=== PATIENT | male | born 1960 | race Caucasian/White ===

== ENCOUNTER 2016-08-29 14:16 | Inpatient (IN) | payer OTHER ==
[~2016-08-29] VITALS: Ht 185.4 cm; Wt 150.0 kg
[2016-08-29] MEDS ORDERED: NITROGLYCERIN SINGLE TAB 0.4 MG SL PRN (15:30)
[2016-08-29] MEDS ORDERED: SODIUM CHLORIDE FLUSH 10ML SYR IVF ONE (15:30)
[2016-08-29] MEDS ORDERED: FUROSEMIDE 40 MG/4 ML IVPush ONE (15:30)
[2016-08-29] MEDS ORDERED: ASPIRIN 81 MG TABLET CHEW PO ONE (15:30)
[2016-08-29] MEDS ORDERED: PLEASE ENTER ALLERGIES MC SCH ×2 (16:00)
[2016-08-29 16:19] LABS: HEMOGLOBIN 15.9 g/dL (13.7-18.0)
[2016-08-29] MEDS ORDERED: FUROSEMIDE 20 MG/2 ML ONE (16:26)
[2016-08-29] MEDS ORDERED: ASPIRIN 81 MG TABLET CHEW ONE (16:26)
[2016-08-29 16:29] LABS: ASPARTATE AMINO TRANSFERASE 29 U/L (15-37); BLOOD UREA NITROGEN 17 mg/dL (7-18)
[2016-08-29 16:35] LABS: IS PT STATUS REG ER OR PRE ER? YES
[2016-08-29] MEDS ORDERED: NITROGLYCERIN SINGLE TAB 0.4 MG SL ONE (16:43)
[2016-08-29] MEDS ORDERED: ATOR80TA75 PO (17:01)
[2016-08-29] MEDS ORDERED: SIMV20TA3 PO (17:01)
[2016-08-29] MEDS ORDERED: VALS1TAB22 PO (17:01)
[2016-08-29] MEDS ORDERED: FENO145T32 PO (17:01)
[2016-08-29] MEDS ORDERED: ASPI-496 PO (17:01)
[2016-08-29] MEDS ORDERED: METO25TA35 PO (17:01)
[2016-08-29] MEDS ORDERED: RANI150T4 PO (17:01)
[2016-08-29] MEDS ORDERED: INSU100V8 SQ (17:02)
[2016-08-29] MEDS ORDERED: INSU100C5 SQ-INSULIN (17:02)
[2016-08-29] MEDS ORDERED: OMNIPAQUE 350 MG/ML, 150 ML BOTTLE ONE (18:54)
[2016-08-29] MEDS ORDERED: HEPARIN 25,000 UNITS/500ML PMX 500 ML IV PRN ×2 (19:00→20:30)
[2016-08-29] MEDS ORDERED: HEPARIN 5,000 UNITS/ML, 1ML IV ONE ×2 (19:00→20:30)
[2016-08-29] MEDS ORDERED: HEPARIN 5,000 UNITS/ML, 1ML IV PRN ×2 (19:00→20:30)
[2016-08-29] MEDS ORDERED: BISACODYL 10 MG SUPP PR PRN (20:30)
[2016-08-29] MEDS ORDERED: POLYETHYLENE GLYCOL 17 GM PACKET PO PRN (20:30)
[2016-08-29] MEDS ORDERED: MORPHINE SULFATE 4 MG/ML, 1ML IVPush PRN (20:30)
[2016-08-29] MEDS ORDERED: ACETAMINOPHEN 325 MG TABLET PO PRN (20:30)
[2016-08-29] MEDS ORDERED: ONDANSETRON 2MG/ML, 2ML IVP PRN (20:30)
[2016-08-29] MEDS ORDERED: TEMPLATE NON-FORMULARY MED. (Insulin Aspart** (Novolog**) 0 UNITS) SQ-INSULIN SCH (21:00)
[2016-08-29 21:13] LABS: IS PT STATUS REG ER OR PRE ER? NO
[2016-08-29 22:43] VITALS: BP 139/66
[2016-08-30] MEDS: METOPROLOL TARTRATE 25 MG TABLET PO SCH ×3 (00:32→21:31)
[2016-08-30] MEDS: SIMVASTATIN 20 MG TABLET PO SCH ×2 (00:32→21:31)
[2016-08-30] MEDS: FAMOTIDINE 20 MG TABLET PO SCH ×2 (00:32→21:31)
[2016-08-30] MEDS: SODIUM CHLORIDE FLUSH 10ML SYR IVF SCH ×3 (00:33→21:32)
[2016-08-30 02:32] VITALS: BP 105/71
[2016-08-30 06:24] LABS: HEMOGLOBIN 15.2 g/dL (13.7-18.0)
[2016-08-30 06:45] LABS: ASPARTATE AMINO TRANSFERASE 33 U/L (15-37); BLOOD UREA NITROGEN 20 mg/dL (7-18)
[2016-08-30 06:57] LABS: IS PT STATUS REG ER OR PRE ER? NO
[2016-08-30] MEDS ORDERED: INSULIN ASPART 100 UNITS/ML, 3ML PEN HIGH DOSE SS SQ-INSULIN SCH (07:00)
[2016-08-30 07:24] VITALS: BP 119/82
[2016-08-30] MEDS ORDERED: VALSARTAN 80 MG TABLET PO SCH ×2 (09:00→09:32)
[2016-08-30] MEDS: INSULIN ASPART 100 UNITS/ML, PEN SQ-INSULIN SCH ×4 (09:20→22:48)
[2016-08-30] MEDS: FENOFIBRATE 145 MG TABLET PO SCH (09:22)
[2016-08-30] MEDS: ASPIRIN 81 MG TABLET EC PO SCH (09:23)
[2016-08-30] MEDS: HYDROCHLOROTHIAZIDE 12.5 MG CAPSULE PO SCH (09:23)
[2016-08-30] MEDS: ATORVASTATIN 80 MG TABLET PO SCH (09:23)
[2016-08-30] MEDS: SENNA/DOCUSATE TABLET PO SCH (09:23)
[2016-08-30] MEDS: VALSARTAN 80 MG TABLET PO SCH (10:10)
[2016-08-30] MEDS: RIVAROXABAN 15 MG TABLET PO SCH ×2 (11:52→17:45)
[2016-08-30 12:54] VITALS: BP 101/74
[2016-08-30 19:56] VITALS: BP 125/80
[2016-08-30] MEDS ORDERED: INSULIN DETEMIR 100 UNITS/ML, PEN SQ-INSULIN SCH (21:00)
[2016-08-31 02:19] VITALS: BP 123/75
[2016-08-31 06:34] LABS: BLOOD UREA NITROGEN 19 mg/dL (7-18)
[2016-08-31] MEDS: INSULIN ASPART 100 UNITS/ML, PEN SQ-INSULIN SCH ×3 (07:00→16:21)
[2016-08-31 08:00] VITALS: BP 114/69
[2016-08-31] MEDS: SENNA/DOCUSATE TABLET PO SCH (09:00)
[2016-08-31] MEDS: METOPROLOL TARTRATE 25 MG TABLET PO SCH (09:19)
[2016-08-31] MEDS: FENOFIBRATE 145 MG TABLET PO SCH (09:19)
[2016-08-31] MEDS: ASPIRIN 81 MG TABLET EC PO SCH (09:19)
[2016-08-31] MEDS: ATORVASTATIN 80 MG TABLET PO SCH (09:19)
[2016-08-31] MEDS: SODIUM CHLORIDE FLUSH 10ML SYR IVF SCH (09:20)
[2016-08-31] MEDS: RIVAROXABAN 15 MG TABLET PO SCH ×2 (09:20→16:21)
[2016-08-31] MEDS: VALSARTAN 80 MG TABLET PO SCH (09:20)
[2016-08-31] MEDS: HYDROCHLOROTHIAZIDE 12.5 MG CAPSULE PO SCH (09:21)
[2016-08-31] MEDS ORDERED: RIVA15TA PO (11:11)
[2016-08-31 15:11] VITALS: BP 123/82
[2016-09-03 10:07] LABS: APTT 24.8 sec (.); DRVVT RATIO 1.1 ratio (.)
== END 2016-08-31 18:28 | disposition home or self-care (01) | DRG 175 ==
LOC: ED 18:19 → EDIP 19:16 → 5SO 20:50
PROVIDERS: ADMIT Internal Medicine; ATTEND Internal Medicine
DX: I26.99 Other pulmonary embolism without acute cor pulmonale (principal); J96.00 Acute respiratory failure, unspecified whether with hypoxia or hypercapnia; E44.1 Mild protein-calorie malnutrition; D68.69 Other thrombophilia; Z68.41 Body mass index [BMI] 40.0-44.9, adult; J98.11 Atelectasis; E11.65 Type 2 diabetes mellitus with hyperglycemia; E66.01 Morbid (severe) obesity due to excess calories; I25.10 Atherosclerotic heart disease of native coronary artery without angina pectoris; E78.5 Hyperlipidemia, unspecified; N18.2 Chronic kidney disease, stage 2 (mild); I77.819 Aortic ectasia, unspecified site; I25.2 Old myocardial infarction; Z79.4 Long term (current) use of insulin; Z95.5 Presence of coronary angioplasty implant and graft; Z79.82 Long term (current) use of aspirin; I13.10 Hypertensive heart and chronic kidney disease without heart failure, with stage 1 through stage 4 chronic kidney disease, or unspecified chronic kidney disease
CPT/HCPCS: 36415; 71010; 71275; 80048; 80053; 81241; 82962; 83036; 83735; 83880; 84484; 85025; 85303; 85306; 85379; 85520; 85598; 85610; 85613; 85670; 85730; 85732; 86146; 86147; 93005; 93970; 96374; C8929; J1644; J1815; J1940; Q9967

== ENCOUNTER → 2019-10-24 | Outpatient (CLI) | payer OTHER ==
[~2019-10-24] MED LIST: ASPI-496 PO; ATOR-2 PO; FENO145T32 PO; INSU100C5 SQ-INSULIN; INSU100V8 SQ; LOSA100T14 PO; METO25TA35 PO; OMEG10007 PO; RANI150T4 PO; REGADENOSON 0.4 MG/5 ML SYRINGE ONE; RIVA15TA PO; RIVA20TA PO; SIMV20TA19 PO; VALS1TAB22 PO
== END | disposition home or self-care (01) ==
LOC: CFH 08:02
PROVIDERS: ATTEND Internal Medicine Cardiovascular Disease
DX: I25.89 Other forms of chronic ischemic heart disease (principal); I10 Essential (primary) hypertension; Z82.49 Family history of ischemic heart disease and other diseases of the circulatory system; Z95.5 Presence of coronary angioplasty implant and graft
CPT/HCPCS: 78452; 93017; A9502; J2785

== ENCOUNTER → 2019-11-15 | Outpatient (CLI) | payer OTHER ==
[~2019-11-15] MED LIST changes: -REGADENOSON 0.4 MG/5 ML SYRINGE ONE
== END | disposition home or self-care (01) ==
LOC: CVU 07:20
PROVIDERS: ATTEND Internal Medicine Cardiovascular Disease
DX: I08.0 Rheumatic disorders of both mitral and aortic valves (principal); I10 Essential (primary) hypertension; E11.9 Type 2 diabetes mellitus without complications; E78.5 Hyperlipidemia, unspecified; Z95.5 Presence of coronary angioplasty implant and graft; Z82.49 Family history of ischemic heart disease and other diseases of the circulatory system
CPT/HCPCS: 93306

== ENCOUNTER 2020-01-11 09:30 | Day surgery (SDC) | payer OTHER ==
[~2020-01-11] VITALS: Ht 185.4 cm; Wt 156.8 kg
[2020-01-11] MEDS ORDERED: CIME200T6 PO (10:05)
[2020-01-11] MEDS ORDERED: HYDROCHLOROTH12.5 MG PO (10:06)
[2020-01-11 10:47] VITALS: BP 143/71
[2020-01-11 12:05] LABS: ANION GAP 7 mmol/L (5-15); CALCIUM 8.9 mg/dL (8.5-10.1); CHLORIDE 110 mmol/L (98-107); CREATININE 1.45 mg/dL (0.7-1.3)
[2020-01-11 12:17] LABS: BASOPHILS # (AUTO) 0.04 x10^3/uL (0-0.1); BASOPHILS % (AUTO) 1 % (0-1); EOSINOPHILS # (AUTO) 0.19 x10^3/uL (0-0.4); EOSINOPHILS % (AUTO) 3 % (1-7); LYMPHOCYTES % (AUTO) 30 % (22-44); MD NO; MEAN CORPUSCULAR HEMOGLOBIN 27.8 pg (27.5-34.5); MEAN CORPUSCULAR HGB CONC 33.3 g/dL (33.2-36.2); MEAN CORPUSCULAR VOLUME 83.4 fL (81-97); MONOCYTES # (AUTO) 0.37 x10^3/uL (0.2-0.8); MONOCYTES % (AUTO) 6 % (2-9); NEUTROPHILS # (AUTO) 3.98 x10^3/uL (1.8-6.8); NEUTROPHILS % (AUTO) 61 % (42-75); PLATELET COUNT 260 x10^3/uL (130-400); RED BLOOD COUNT 4.77 x10^6/uL (4.38-5.82); RED CELL DISTRIBUTION WIDTH 14.9 % (9.4-14.8)
[2020-01-11] MEDS ORDERED: MIDAZOLAM 1 MG/ML, 5ML ONE (12:56)
[2020-01-11] MEDS ORDERED: FENTANYL PF 100 MCG/2ML ONE (12:56)
[2020-01-11] MEDS ORDERED: BIVALIRUDIN 250 MG ONE (12:57)
[2020-01-11] MEDS ORDERED: LIDOCAINE-MPF 1%, 5ML ONE (12:57)
[2020-01-11] MEDS ORDERED: HEPARIN 1,000 UNITS/ML, 10ML ONE (12:57)
[2020-01-11] MEDS ORDERED: TICAGRELOR 90 MG TABLET ONE (12:57)
[2020-01-11] MEDS ORDERED: VERAPAMIL 2.5 MG/ML, 2ML ONE (12:57)
== END 2020-01-11 16:09 | disposition home or self-care (01) ==
LOC: CACL 09:30
PROVIDERS: ATTEND Internal Medicine Cardiovascular Disease
DX: I25.10 Atherosclerotic heart disease of native coronary artery without angina pectoris (principal); I25.2 Old myocardial infarction; E11.9 Type 2 diabetes mellitus without complications; E78.2 Mixed hyperlipidemia; I10 Essential (primary) hypertension; Z79.4 Long term (current) use of insulin; Z79.01 Long term (current) use of anticoagulants; Z86.711 Personal history of pulmonary embolism; Z79.82 Long term (current) use of aspirin; Z79.899 Other long term (current) drug therapy; Z95.5 Presence of coronary angioplasty implant and graft; Z82.49 Family history of ischemic heart disease and other diseases of the circulatory system
CPT/HCPCS: 36415; 80048; 85025; 93458; 93571; 99156; 99157; C1769; C1894; J1644; J2250; J3010; Q9967; J0583

== ENCOUNTER 2020-05-17 05:11 | Inpatient (IN) | payer OTHER ==
[~2020-05-17] VITALS: Ht 185.4 cm; Wt 143.0 kg
[~2020-05-17 05:11] MED LIST changes: +CIME200T6 PO; +HYDROCHLOROTH12.5 MG PO
[2020-05-17] MEDS ORDERED: CEFTRIAXONE PMX 1GM/50ML 50 ML IV ONE (06:00)
[2020-05-17] MEDS ORDERED: AZITHROMYCIN 500 MG in SODIUM CHLORIDE 0.9% 250 ML IV ONE (06:00)
--- NOTE | 2020-05-17 06:09 | NUR ---
pt with recent covid 19 diagnosis. pt states he bought an o2 monitor for home and this morning he woke with difficulty breathing. his O2 monitor said low 80s and so pt decided to come in. pt with very frequent dry cough and low O2 in the 80 in traige. 2 L NC O2 applied to maintain O2 >90%
[2020-05-17 06:28] LABS: BASOPHILS % (AUTO) 1 % (0-1); EOSINOPHILS % (AUTO) 0 % (1-7); LYMPHOCYTES % (AUTO) 20 % (22-44); MEAN CORPUSCULAR HEMOGLOBIN 28.5 pg (27.5-34.5); MEAN CORPUSCULAR HGB CONC 35.1 g/dL (33.2-36.2); MEAN PLATELET VOLUME 8.1 fL (7.4-10.4); MONOCYTES % (AUTO) 9 % (2-9); NEUTROPHILS % (AUTO) 71 % (42-75); PLATELET COUNT 161 x10^3/uL (130-400); RED BLOOD COUNT 4.85 x10^6/uL (4.38-5.82); RED CELL DISTRIBUTION WIDTH 14.8 % (9.4-14.8)
[2020-05-17] MEDS ORDERED: DEXAMETHASONE 4 MG/ML, 1ML IVPush ONE ×2 (06:30→09:00)
[2020-05-17 06:34] LABS: ALANINE AMINOTRANSFERASE 69 U/L (12-78); ALBUMIN 2.8 g/dL (3.4-5.0); ANION GAP 8 mmol/L (5-15); CALCIUM 8.6 mg/dL (8.5-10.1); CHLORIDE 102 mmol/L (98-107); CREATININE 1.63 mg/dL (0.7-1.3)
[2020-05-17 06:35] LABS: MD NO
[2020-05-17 06:37] LABS: PLATELET (DIC) 161 x10^3/uL (130-400)
[2020-05-17 06:41] LABS: ALKALINE PHOSPHATASE 39 U/L (45-117); BILIRUBIN,TOTAL 0.7 mg/dL (0.2-1.0); TOTAL PROTEIN 6.9 g/dL (6.4-8.2)
[2020-05-17] MEDS ORDERED: DEXAMETHASONE 4 MG/ML, 1ML ONE (06:43)
[2020-05-17] MEDS ORDERED: CEFTRIAXONE PMX 1GM/50ML 50 ML ONE (06:44)
[2020-05-17 07:00] LABS: FIBRINOGEN 326 mg/dL (200-340); PROTIME 11.4 Seconds (9.6-11.5); PTT 31 Seconds (25-31)
[2020-05-17 07:01] LABS: D-DIMER (DIC) < 0.19 ug/mlFEU (0.00-0.52)
--- NOTE | 2020-05-17 07:14 | NUR ---
TOOK REPORT FROM CHRISTOPH TALAVERA, ASSUME CARE AT THIS TIME. PT SITTING IN BED REPORTS SOB SPO2 [id number] ON 4L NC. CALLED FOR A HOSPITAL BED.
--- NOTE | 2020-05-17 07:36 | NUR ---
PT PRONED WITH PILLOWS PER REQUEST. "THIS IS THE ONLY WAY I CAN SLEEP" PT ON A HOSPITAL BED. WENT OVER PLAN OF FROM ORDER LIST, AGREES TO PLAN.
--- NOTE | 2020-05-17 08:01 | NUR ---
GROUP SUPERVISOR YARD, ELEANOR IN ROOM FOR PT EVAL/ ADMIT
[2020-05-17] MEDS ORDERED: DOXYCYCLINE 100 MG in DEXTROSE 5% 250 ML IV SCH (08:30)
[2020-05-17] MEDS ORDERED: GUAIFENESIN/DM 200-20MG, 10ML UDC PO PRN (08:30)
[2020-05-17] MEDS ORDERED: hydrALAzine 20 MG/ML, 1ML IVPush PRN (08:30)
[2020-05-17] MEDS ORDERED: DIPHENHYDRAMINE 25 MG CAPSULE PO PRN (08:30)
[2020-05-17] MEDS ORDERED: BISACODYL 10 MG SUPP PR PRN (08:30)
[2020-05-17] MEDS ORDERED: HYDROcodone/APAP 5/325 TABLET PO PRN (08:30)
[2020-05-17] MEDS ORDERED: MELATONIN 5 MG TABLET PO PRN (08:30)
[2020-05-17] MEDS ORDERED: ONDANSETRON 2MG/ML, 2ML IVPush PRN (08:30)
[2020-05-17] MEDS ORDERED: PROMETHAZINE 25 MG/ML, 1ML IM PRN (08:30)
[2020-05-17] MEDS ORDERED: POLYETHYLENE GLYCOL 17 GM PACKET PO PRN (08:30)
[2020-05-17] MEDS ORDERED: LABETALOL 5MG/ML, 20ML IVPush PRN (08:30)
[2020-05-17] MEDS ORDERED: REMDESIVIR 200 MG in SODIUM CHLORIDE 0.9% 250 ML IVPB ONE (09:00)
[2020-05-17] MEDS: SENNA/DOCUSATE TABLET PO SCH (09:00)
[2020-05-17] MEDS ORDERED: BUDESONIDE 0.5 MG/2 ML INHA INH SCH (09:30)
[2020-05-17 10:09] LABS: TROPONIN I 0.033 ng/mL (0.000-0.045)
[2020-05-17 10:21] VITALS: BP 148/80
[2020-05-17] MEDS: ZINC SULFATE 220 MG CAPSULE PO SCH (11:16)
[2020-05-17] MEDS: ASCORBIC ACID 500 MG TABLET PO SCH ×3 (11:17→21:38)
[2020-05-17] MEDS: METOPROLOL TARTRATE 25 MG TAB PO SCH ×2 (11:17→21:38)
[2020-05-17] MEDS: LOSARTAN 50MG TABLET PO SCH (11:17)
[2020-05-17] MEDS: RIVAROXABAN 20 MG TABLET PO SCH (11:17)
[2020-05-17] MEDS: THIAMINE 100MG TABLET PO SCH ×2 (11:18→21:38)
[2020-05-17] MEDS: ATORVASTATIN 80 MG TABLET PO SCH (11:18)
[2020-05-17] MEDS: CHOLECALCIFEROL 5,000u TAB PO SCH (11:18)
[2020-05-17] MEDS: ASPIRIN 81 MG TABLET EC PO SCH (11:18)
[2020-05-17 12:41] VITALS: BP 132/78
[2020-05-17] MEDS: GUAIFENESIN/DM 200-20MG, 10ML UDC PO SCH ×3 (13:21→23:09)
[2020-05-17] MEDS: FENOFIBRATE 145 MG TABLET PO SCH (13:22)
[2020-05-17] MEDS: HYDROCHLOROTHIAZIDE 12.5 MG CAPSULE PO SCH (13:22)
[2020-05-17] MEDS: INSULIN LISPRO 100 UNITS/ML, PEN SQ-INSULIN SCH ×3 (13:23→21:39)
[2020-05-17] MEDS: LACTATED RINGERS 1,000 ML IV SCH (15:23)
[2020-05-17 16:03] LABS: TROPONIN I 0.031 ng/mL (0.000-0.045)
[2020-05-17] MEDS: CEFTRIAXONE PMX 2GM/50ML 50 ML IVPB SCH (16:05)
[2020-05-17] MEDS: DOXYCYCLINE 100 MG in DEXTROSE 5% 250 ML IV SCH ×2 (17:15→21:44)
[2020-05-17] MEDS: CIMETIDINE 200 MG TABLET PO SCH (17:15)
[2020-05-17] MEDS ORDERED: INSULIN GLARGINE 100 UNITS/ML, PEN SQ-INSULIN SCH (21:00)
[2020-05-17 21:10] VITALS: BP 146/81
[2020-05-17] MEDS: MELATONIN 5 MG TABLET PO SCH (21:38)
[2020-05-17 22:50] LABS: TROPONIN I 0.018 ng/mL (0.000-0.045)
[2020-05-18 00:52] VITALS: BP 107/66
[2020-05-18] MEDS: LACTATED RINGERS 1,000 ML IV SCH ×2 (04:00→23:08)
[2020-05-18] MEDS: GUAIFENESIN/DM 200-20MG, 10ML UDC PO SCH ×4 (06:00→23:16)
[2020-05-18 08:00] LABS: BASOPHILS % (AUTO) 1 % (0-1); EOSINOPHILS % (AUTO) 0 % (1-7); LYMPHOCYTES % (AUTO) 17 % (22-44); MEAN CORPUSCULAR HEMOGLOBIN 28.2 pg (27.5-34.5); MEAN CORPUSCULAR HGB CONC 34.5 g/dL (33.2-36.2); MEAN PLATELET VOLUME 8.1 fL (7.4-10.4); MONOCYTES % (AUTO) 10 % (2-9); NEUTROPHILS % (AUTO) 72 % (42-75); PLATELET COUNT 167 x10^3/uL (130-400); RED BLOOD COUNT 4.65 x10^6/uL (4.38-5.82); RED CELL DISTRIBUTION WIDTH 14.9 % (9.4-14.8)
[2020-05-18 08:10] LABS: ANION GAP 6 mmol/L (5-15); CALCIUM 8.5 mg/dL (8.5-10.1); CHLORIDE 104 mmol/L (98-107)
[2020-05-18 08:21] LABS: CREATININE 1.53 mg/dL (0.7-1.3)
[2020-05-18 08:49] VITALS: BP 130/73
[2020-05-18] MEDS: REMDESIVIR 100 MG in SODIUM CHLORIDE 0.9% 250 ML IVPB SCH (08:59)
[2020-05-18] MEDS: FLUTICASONE/VILANTEROL 100-25MCG/INH INH SCH (08:59)
[2020-05-18] MEDS: INSULIN LISPRO 100 UNITS/ML, PEN SQ-INSULIN SCH ×3 (08:59→21:30)
[2020-05-18] MEDS: THIAMINE 100MG TABLET PO SCH ×2 (09:00→21:28)
[2020-05-18] MEDS: HYDROCHLOROTHIAZIDE 12.5 MG CAPSULE PO SCH (09:00)
[2020-05-18] MEDS: ATORVASTATIN 80 MG TABLET PO SCH (09:00)
[2020-05-18] MEDS: ASPIRIN 81 MG TABLET EC PO SCH (09:01)
[2020-05-18] MEDS: LOSARTAN 50MG TABLET PO SCH (09:01)
[2020-05-18] MEDS: ZINC SULFATE 220 MG CAPSULE PO SCH (09:01)
[2020-05-18] MEDS: FENOFIBRATE 145 MG TABLET PO SCH (09:01)
[2020-05-18] MEDS: METOPROLOL TARTRATE 25 MG TAB PO SCH ×2 (09:01→21:29)
[2020-05-18] MEDS: CHOLECALCIFEROL 5,000u TAB PO SCH (09:01)
[2020-05-18] MEDS: RIVAROXABAN 20 MG TABLET PO SCH (09:01)
[2020-05-18] MEDS: ASCORBIC ACID 500 MG TABLET PO SCH ×3 (09:01→21:28)
[2020-05-18] MEDS: CIMETIDINE 200 MG TABLET PO SCH (09:01)
[2020-05-18] MEDS: SENNA/DOCUSATE TABLET PO SCH (09:02)
[2020-05-18 09:15] LABS: MD SCAN
[2020-05-18] MEDS ORDERED: FUROSEMIDE 40 MG/4 ML IV ONE (09:30)
[2020-05-18] MEDS: DOXYCYCLINE 100 MG in DEXTROSE 5% 250 ML IV SCH (11:18)
[2020-05-18] MEDS: ACETAMINOPHEN 325 MG TABLET PO PRN (11:39)
[2020-05-18 12:10] VITALS: BP 125/74
[2020-05-18] MEDS: INSULIN GLARGINE 100 UNITS/ML, PEN SQ-INSULIN SCH ×2 (12:52→21:30)
[2020-05-18] MEDS: CEFTRIAXONE PMX 2GM/50ML 50 ML IVPB SCH (16:45)
[2020-05-18 20:12] VITALS: BP 151/84
[2020-05-18] MEDS: DOXYCYCLINE 100MG TABLET PO SCH (21:28)
[2020-05-18] MEDS: MELATONIN 5 MG TABLET PO SCH (21:29)
[2020-05-19 01:58] VITALS: BP 151/84
[2020-05-19] MEDS: GUAIFENESIN/DM 200-20MG, 10ML UDC PO SCH ×3 (05:21→17:14)
[2020-05-19] MEDS: ACETAMINOPHEN 325 MG TABLET PO PRN ×2 (05:36→09:32)
[2020-05-19 06:16] LABS: BASOPHILS % (AUTO) 0 % (0-1); EOSINOPHILS % (AUTO) 0 % (1-7); LYMPHOCYTES % (AUTO) 10 % (22-44); MEAN CORPUSCULAR HEMOGLOBIN 28.5 pg (27.5-34.5); MEAN CORPUSCULAR HGB CONC 35.1 g/dL (33.2-36.2); MEAN PLATELET VOLUME 8.3 fL (7.4-10.4); MONOCYTES % (AUTO) 8 % (2-9); NEUTROPHILS % (AUTO) 82 % (42-75); PLATELET COUNT 204 x10^3/uL (130-400); RED BLOOD COUNT 4.75 x10^6/uL (4.38-5.82); RED CELL DISTRIBUTION WIDTH 14.6 % (9.4-14.8)
[2020-05-19 06:27] LABS: CHLORIDE 106 mmol/L (98-107)
[2020-05-19 06:43] LABS: ALANINE AMINOTRANSFERASE 59 U/L (12-78); ALBUMIN 2.4 g/dL (3.4-5.0); ALKALINE PHOSPHATASE 37 U/L (45-117); ANION GAP 5 mmol/L (5-15); BILIRUBIN,TOTAL 0.4 mg/dL (0.2-1.0); CALCIUM 8.6 mg/dL (8.5-10.1); CREATININE 1.21 mg/dL (0.7-1.3); MD NO
[2020-05-19 06:49] VITALS: BP 122/70
[2020-05-19] MEDS ORDERED: INSULIN GLARGINE 100 UNITS/ML, PEN SQ-INSULIN SCH ×2 (09:00→21:00)
[2020-05-19] MEDS: INSULIN LISPRO 100 UNITS/ML, PEN SQ-INSULIN SCH ×4 (09:30→21:01)
[2020-05-19] MEDS: SENNA/DOCUSATE TABLET PO SCH (09:31)
[2020-05-19] MEDS: FLUTICASONE/VILANTEROL 100-25MCG/INH INH SCH (09:32)
[2020-05-19] MEDS: REMDESIVIR 100 MG in SODIUM CHLORIDE 0.9% 250 ML IVPB SCH (09:32)
[2020-05-19] MEDS: ATORVASTATIN 80 MG TABLET PO SCH (09:34)
[2020-05-19] MEDS: THIAMINE 100MG TABLET PO SCH ×2 (09:34→20:51)
[2020-05-19] MEDS: DOXYCYCLINE 100MG TABLET PO SCH ×2 (09:34→20:50)
[2020-05-19] MEDS: ASPIRIN 81 MG TABLET EC PO SCH (09:34)
[2020-05-19] MEDS: CHOLECALCIFEROL 5,000u TAB PO SCH (09:34)
[2020-05-19] MEDS: CIMETIDINE 200 MG TABLET PO SCH (09:34)
[2020-05-19] MEDS: RIVAROXABAN 20 MG TABLET PO SCH (09:34)
[2020-05-19] MEDS: FENOFIBRATE 145 MG TABLET PO SCH (09:34)
[2020-05-19] MEDS: METOPROLOL TARTRATE 25 MG TAB PO SCH ×2 (09:34→20:51)
[2020-05-19] MEDS: ASCORBIC ACID 500 MG TABLET PO SCH ×3 (09:34→20:52)
[2020-05-19] MEDS: HYDROCHLOROTHIAZIDE 12.5 MG CAPSULE PO SCH (09:34)
[2020-05-19] MEDS: ZINC SULFATE 220 MG CAPSULE PO SCH (09:35)
[2020-05-19] MEDS: LOSARTAN 50MG TABLET PO SCH (09:35)
[2020-05-19] MEDS ORDERED: BUTALB/APAP/CAFFEINE 50MG/325MG/40MG ONE (10:15)
[2020-05-19] MEDS: BUTALB/APAP/CAFFEINE 50MG/325MG/40MG PO PRN ×2 (10:18→17:31)
[2020-05-19 12:04] VITALS: BP 148/83
[2020-05-19] MEDS: LACTATED RINGERS 1,000 ML IV SCH (12:16)
[2020-05-19] MEDS: CEFTRIAXONE PMX 2GM/50ML 50 ML IVPB SCH (17:14)
[2020-05-19 19:52] VITALS: BP 157/80
[2020-05-19] MEDS: MELATONIN 5 MG TABLET PO SCH (20:51)
[2020-05-20] MEDS: GUAIFENESIN/DM 200-20MG, 10ML UDC PO SCH ×6 (00:20→21:34)
[2020-05-20 00:46] VITALS: BP 153/85
[2020-05-20] MEDS: BUTALB/APAP/CAFFEINE 50MG/325MG/40MG PO PRN (00:48)
[2020-05-20] MEDS: LACTATED RINGERS 1,000 ML IV SCH (02:32)
[2020-05-20] MEDS: ACETAMINOPHEN 325 MG TABLET PO PRN ×2 (03:56→18:35)
[2020-05-20] MEDS: ALBUTEROL HFA 90 MCG/SPRAY INH PRN ×2 (05:38→21:32)
[2020-05-20 06:39] VITALS: BP 145/70
[2020-05-20 07:42] LABS: ALANINE AMINOTRANSFERASE 48 U/L (12-78); CHLORIDE 106 mmol/L (98-107); CREATININE 1.11 mg/dL (0.7-1.3)
[2020-05-20 07:46] LABS: ALBUMIN 2.3 g/dL (3.4-5.0); ALKALINE PHOSPHATASE 39 U/L (45-117); ANION GAP 8 mmol/L (5-15); BILIRUBIN,TOTAL 0.4 mg/dL (0.2-1.0); CALCIUM 8.3 mg/dL (8.5-10.1); TOTAL PROTEIN 5.2 g/dL (6.4-8.2)
[2020-05-20] MEDS: HYDROCHLOROTHIAZIDE 12.5 MG CAPSULE PO SCH (08:44)
[2020-05-20] MEDS: DOXYCYCLINE 100MG TABLET PO SCH ×2 (08:44→21:20)
[2020-05-20] MEDS: ASPIRIN 81 MG TABLET EC PO SCH (08:44)
[2020-05-20] MEDS: ZINC SULFATE 220 MG CAPSULE PO SCH (08:45)
[2020-05-20] MEDS: METOPROLOL TARTRATE 25 MG TAB PO SCH ×2 (08:45→21:19)
[2020-05-20] MEDS: LOSARTAN 50MG TABLET PO SCH (08:45)
[2020-05-20] MEDS: ASCORBIC ACID 500 MG TABLET PO SCH ×3 (08:45→21:20)
[2020-05-20] MEDS: CIMETIDINE 200 MG TABLET PO SCH (08:45)
[2020-05-20] MEDS: ATORVASTATIN 80 MG TABLET PO SCH (08:46)
[2020-05-20] MEDS: RIVAROXABAN 20 MG TABLET PO SCH (08:46)
[2020-05-20] MEDS: FENOFIBRATE 145 MG TABLET PO SCH (08:46)
[2020-05-20] MEDS: CHOLECALCIFEROL 5,000u TAB PO SCH (08:46)
[2020-05-20] MEDS: THIAMINE 100MG TABLET PO SCH ×2 (08:46→21:19)
[2020-05-20] MEDS: INSULIN LISPRO 100 UNITS/ML, PEN SQ-INSULIN SCH ×4 (08:47→21:28)
[2020-05-20] MEDS: FLUTICASONE/VILANTEROL 100-25MCG/INH INH SCH (08:48)
[2020-05-20] MEDS: SENNA/DOCUSATE TABLET PO SCH (08:48)
[2020-05-20] MEDS: DEXAMETHASONE 4 MG/ML, 1ML IVPush SCH (08:48)
[2020-05-20] MEDS: INSULIN GLARGINE 100 UNITS/ML, PEN SQ-INSULIN SCH ×2 (08:50→21:29)
[2020-05-20] MEDS ORDERED: FUROSEMIDE 40 MG/4 ML IV ONE ×2 (09:00→17:00)
[2020-05-20 09:11] LABS: BASOPHILS % (AUTO) 0 % (0-1); EOSINOPHILS % (AUTO) 0 % (1-7); LYMPHOCYTES % (AUTO) 10 % (22-44); MEAN CORPUSCULAR HEMOGLOBIN 28.1 pg (27.5-34.5); MEAN CORPUSCULAR HGB CONC 34.6 g/dL (33.2-36.2); MEAN PLATELET VOLUME 8.3 fL (7.4-10.4); MONOCYTES % (AUTO) 6 % (2-9); NEUTROPHILS % (AUTO) 84 % (42-75); PLATELET COUNT 233 x10^3/uL (130-400); RED BLOOD COUNT 4.69 x10^6/uL (4.38-5.82); RED CELL DISTRIBUTION WIDTH 14.7 % (9.4-14.8)
[2020-05-20 09:15] LABS: MD NO
[2020-05-20] MEDS: REMDESIVIR 100 MG in SODIUM CHLORIDE 0.9% 250 ML IVPB SCH (10:48)
[2020-05-20 12:03] VITALS: BP 151/82
[2020-05-20] MEDS: CEFTRIAXONE PMX 2GM/50ML 50 ML IVPB SCH (16:17)
[2020-05-20] MEDS ORDERED: GUAIFENESIN 200 MG TABLET ONE (17:52)
[2020-05-20] MEDS: GUAIFENESIN 200 MG TABLET PO SCH (17:57)
[2020-05-20] MEDS: LACTOBACILLUS CHEW TABLET PO SCH ×2 (17:57→21:19)
[2020-05-20] MEDS: LOPERAMIDE 2 MG CAPSULE PO SCH ×2 (17:57→21:20)
[2020-05-20 18:23] VITALS: BP 137/70
[2020-05-20] MEDS: MELATONIN 5 MG TABLET PO SCH (21:20)
[2020-05-21 00:23] VITALS: BP 136/77
[2020-05-21] MEDS: LOPERAMIDE 2 MG CAPSULE PO SCH ×5 (01:30→20:23)
[2020-05-21] MEDS: GUAIFENESIN 200 MG TABLET PO SCH ×4 (05:44→20:23)
[2020-05-21] MEDS: LACTOBACILLUS CHEW TABLET PO SCH (05:46)
[2020-05-21] MEDS: ALBUTEROL HFA 90 MCG/SPRAY INH PRN (05:55)
[2020-05-21 06:48] VITALS: BP 138/77
[2020-05-21] MEDS: SENNA/DOCUSATE TABLET PO SCH (08:30)
[2020-05-21 08:42] LABS: BASOPHILS % (AUTO) 0 % (0-1); EOSINOPHILS % (AUTO) 0 % (1-7); LYMPHOCYTES % (AUTO) 6 % (22-44); MEAN CORPUSCULAR HEMOGLOBIN 27.8 pg (27.5-34.5); MEAN CORPUSCULAR HGB CONC 33.5 g/dL (33.2-36.2); MEAN PLATELET VOLUME 8.1 fL (7.4-10.4); MONOCYTES % (AUTO) 8 % (2-9); NEUTROPHILS % (AUTO) 86 % (42-75); PLATELET COUNT 223 x10^3/uL (130-400); RED BLOOD COUNT 4.46 x10^6/uL (4.38-5.82); RED CELL DISTRIBUTION WIDTH 14.7 % (9.4-14.8)
[2020-05-21] MEDS ORDERED: DEXAMETHASONE 4 MG/ML, 5ML ONE (08:42)
[2020-05-21 08:53] LABS: ALBUMIN 2.1 g/dL (3.4-5.0); ANION GAP 4 mmol/L (5-15); CALCIUM 8.4 mg/dL (8.5-10.1); CHLORIDE 104 mmol/L (98-107)
[2020-05-21 08:56] LABS: ALANINE AMINOTRANSFERASE 41 U/L (12-78); ALKALINE PHOSPHATASE 46 U/L (45-117); BILIRUBIN,TOTAL 0.5 mg/dL (0.2-1.0); CREATININE 1.29 mg/dL (0.7-1.3); TOTAL PROTEIN 5.6 g/dL (6.4-8.2)
[2020-05-21] MEDS: REMDESIVIR 100 MG in SODIUM CHLORIDE 0.9% 250 ML IVPB SCH (08:59)
[2020-05-21 09:00] LABS: MD NO
[2020-05-21] MEDS: FLUTICASONE/VILANTEROL 100-25MCG/INH INH SCH (09:00)
[2020-05-21] MEDS: INSULIN GLARGINE 100 UNITS/ML, PEN SQ-INSULIN SCH ×2 (09:09→20:27)
[2020-05-21] MEDS: INSULIN LISPRO 100 UNITS/ML, PEN SQ-INSULIN SCH ×4 (09:09→20:24)
[2020-05-21] MEDS: THIAMINE 100MG TABLET PO SCH ×2 (09:13→20:23)
[2020-05-21] MEDS: ATORVASTATIN 80 MG TABLET PO SCH (09:13)
[2020-05-21] MEDS: CIMETIDINE 200 MG TABLET PO SCH (09:13)
[2020-05-21] MEDS: ZINC SULFATE 220 MG CAPSULE PO SCH (09:13)
[2020-05-21] MEDS: FENOFIBRATE 145 MG TABLET PO SCH (09:13)
[2020-05-21] MEDS: DOXYCYCLINE 100MG TABLET PO SCH ×2 (09:13→20:23)
[2020-05-21] MEDS: ASCORBIC ACID 500 MG TABLET PO SCH ×3 (09:13→20:24)
[2020-05-21] MEDS: ASPIRIN 81 MG TABLET EC PO SCH (09:13)
[2020-05-21] MEDS: METOPROLOL TARTRATE 25 MG TAB PO SCH ×2 (09:14→20:23)
[2020-05-21] MEDS: HYDROCHLOROTHIAZIDE 12.5 MG CAPSULE PO SCH (09:14)
[2020-05-21] MEDS: LOSARTAN 50MG TABLET PO SCH (09:14)
[2020-05-21] MEDS: CHOLECALCIFEROL 5,000u TAB PO SCH (09:14)
[2020-05-21] MEDS: RIVAROXABAN 20 MG TABLET PO SCH (09:14)
[2020-05-21] MEDS: DEXAMETHASONE 4 MG/ML, 1ML IVPush SCH (09:15)
[2020-05-21] MEDS: BUTALB/APAP/CAFFEINE 50MG/325MG/40MG PO PRN (09:23)
[2020-05-21] MEDS: GUAIFENESIN/DM 200-20MG, 10ML UDC PO SCH ×2 (11:49→16:08)
[2020-05-21 12:00] VITALS: BP 114/71
[2020-05-21] MEDS: CEFTRIAXONE PMX 2GM/50ML 50 ML IVPB SCH (15:52)
[2020-05-21] MEDS: FUROSEMIDE 20 MG/2 ML IV SCH (15:53)
[2020-05-21 19:03] VITALS: BP 118/66
[2020-05-21] MEDS: MELATONIN 5 MG TABLET PO SCH (20:23)
[2020-05-21] MEDS: ACETAMINOPHEN 325 MG TABLET PO PRN (20:32)
[2020-05-22 00:40] VITALS: BP 127/74
[2020-05-22] MEDS: GUAIFENESIN/DM 200-20MG, 10ML UDC PO SCH ×4 (00:45→15:50)
[2020-05-22] MEDS: LOPERAMIDE 2 MG CAPSULE PO SCH ×6 (00:45→20:00)
[2020-05-22] MEDS: BUTALB/APAP/CAFFEINE 50MG/325MG/40MG PO PRN (01:40)
[2020-05-22] MEDS: GUAIFENESIN 200 MG TABLET PO SCH ×4 (05:13→21:00)
[2020-05-22 06:40] LABS: ALBUMIN 2.3 g/dL (3.4-5.0); ANION GAP 5 mmol/L (5-15); CHLORIDE 105 mmol/L (98-107)
[2020-05-22 06:44] VITALS: BP 138/76
[2020-05-22 06:44] LABS: ALANINE AMINOTRANSFERASE 41 U/L (12-78); ALKALINE PHOSPHATASE 71 U/L (45-117); BILIRUBIN,TOTAL 0.5 mg/dL (0.2-1.0); CREATININE 1.27 mg/dL (0.7-1.3); TOTAL PROTEIN 6.5 g/dL (6.4-8.2)
[2020-05-22] MEDS ORDERED: DEXAMETHASONE 4 MG/ML, 5ML ONE (08:19)
[2020-05-22] MEDS: HYDROCHLOROTHIAZIDE 12.5 MG CAPSULE PO SCH (08:50)
[2020-05-22] MEDS: CIMETIDINE 200 MG TABLET PO SCH (08:50)
[2020-05-22] MEDS: FENOFIBRATE 145 MG TABLET PO SCH (08:50)
[2020-05-22] MEDS: ATORVASTATIN 80 MG TABLET PO SCH (08:50)
[2020-05-22] MEDS: ASPIRIN 81 MG TABLET EC PO SCH (08:50)
[2020-05-22] MEDS: ASCORBIC ACID 500 MG TABLET PO SCH ×3 (08:50→21:00)
[2020-05-22] MEDS: CHOLECALCIFEROL 5,000u TAB PO SCH (08:50)
[2020-05-22] MEDS: FLUTICASONE/VILANTEROL 100-25MCG/INH INH SCH (08:50)
[2020-05-22] MEDS: DOXYCYCLINE 100MG TABLET PO SCH ×2 (08:50→21:00)
[2020-05-22] MEDS: METOPROLOL TARTRATE 25 MG TAB PO SCH ×2 (08:50→21:00)
[2020-05-22] MEDS: THIAMINE 100MG TABLET PO SCH ×2 (08:50→21:00)
[2020-05-22] MEDS: FUROSEMIDE 20 MG/2 ML IV SCH ×2 (08:50→17:24)
[2020-05-22] MEDS: RIVAROXABAN 20 MG TABLET PO SCH (08:50)
[2020-05-22] MEDS: INSULIN LISPRO 100 UNITS/ML, PEN SQ-INSULIN SCH ×4 (08:50→21:00)
[2020-05-22] MEDS: LOSARTAN 50MG TABLET PO SCH (08:50)
[2020-05-22] MEDS: INSULIN GLARGINE 100 UNITS/ML, PEN SQ-INSULIN SCH ×2 (08:50→21:00)
[2020-05-22] MEDS: ZINC SULFATE 220 MG CAPSULE PO SCH (08:50)
[2020-05-22] MEDS: DEXAMETHASONE 4 MG/ML, 1ML IVPush SCH (08:50)
[2020-05-22] MEDS: SENNA/DOCUSATE TABLET PO SCH (09:00)
[2020-05-22 12:10] VITALS: BP 122/75
[2020-05-22] MEDS: CEFTRIAXONE PMX 2GM/50ML 50 ML IVPB SCH (17:23)
[2020-05-22] MEDS ORDERED: ACETAMINOPHEN 650 MG SUPP PR PRN (18:30)
[2020-05-22] MEDS ORDERED: ACETAMINOPHEN 325 MG TABLET PO PRN (18:30)
[2020-05-22] MEDS ORDERED: EPINEPHRINE SYRINGE 0.1 MG/ML, 10ML ONE (20:21)
[2020-05-22] MEDS ORDERED: SODIUM BICARB 8.4%, 50ML SYRINGE ONE (20:21)
[2020-05-22] MEDS: MELATONIN 5 MG TABLET PO SCH (21:00)
== END 2020-05-23 01:21 | disposition expired | DRG 177 ==
LOC: ED 06:08 → EDIP 07:42 → 4EST 09:57
PROVIDERS: ADMIT Internal Medicine; ATTEND Internal Medicine
PROC: XW033E5 Introduction of Remdesivir Anti-infective into Peripheral Vein, Percutaneous Approach, New Technology Group 5 (ICD-10-PCS; principal; 2020-05-18)
PROC: 5A12012 Performance of Cardiac Output, Single, Manual (ICD-10-PCS; 2020-05-23)
DX: U07.1 COVID-19 (principal); J96.01 Acute respiratory failure with hypoxia; J12.89 Other viral pneumonia; Z68.41 Body mass index [BMI] 40.0-44.9, adult; D68.59 Other primary thrombophilia; N17.9 Acute kidney failure, unspecified; E66.01 Morbid (severe) obesity due to excess calories; E11.65 Type 2 diabetes mellitus with hyperglycemia; E78.5 Hyperlipidemia, unspecified; I10 Essential (primary) hypertension; I25.10 Atherosclerotic heart disease of native coronary artery without angina pectoris; Z79.01 Long term (current) use of anticoagulants; Z79.899 Other long term (current) drug therapy; Z86.711 Personal history of pulmonary embolism; Z91.19 Patient's noncompliance with other medical treatment and regimen; Z79.82 Long term (current) use of aspirin; Z79.4 Long term (current) use of insulin
CPT/HCPCS: 36415; 71045; 80048; 80053; 82728; 82962; 83036; 83605; 83615; 83880; 84145; 84443; 84484; 85025; 85049; 85379; 85384; 85610; 85730; 86140; 87040; 87070; 87205; 92950; 93005; 93306; 99285; G0378; J0456; J0696; J1100; J1940; J2405; J7060; J1815; J7050; J7120